=== PATIENT | male | born 1965 | race Caucasian/White ===

== ENCOUNTER 2018-09-27 14:19 | Emergency (ER) | payer OTHER ==
[2018-09-27] MEDS: LIDOCAINE 4% CR TOP (16:02)
== END 2018-09-27 17:07 | disposition home or self-care (01) ==
LOC: FTE 14:19
DX: L03.011 Cellulitis of right finger (principal); I10 Essential (primary) hypertension; E11.9 Type 2 diabetes mellitus without complications; Z87.891 Personal history of nicotine dependence
CPT/HCPCS: 10060; 99283-25